=== PATIENT | male | born 1970 ===

== ENCOUNTER 2018-03-09 09:37 | Emergency (ER) | payer MEDICAID, OTHER ==
[2018-03-09 10:10] VITALS: RESP 18; TEMP 97.6
--- NOTE | 2018-03-09 11:10 | ED PDOC ---
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 Patient's portrait studio photographer reports patient felt dizzy on his way to the Emergency department but does not currently feel that way. Electric Crane Operator notes patient has never experienced these symptoms before. Patient has no known drug allergies and denies any other complaints. Patient is a non-smoker and denies EtOH consumption. Time/Duration: > week (pt notes feeling dizzy for past 4 days straight) Symptom Onset: Sudden Symptom Course: Unchanged Activities at Onset: Light Past Medical History - Provider Review Nursing Documentation Reviewed: Yes - Infectious Disease Hx of Infectious Diseases: None - Cardiac Hx Cardiac Disorders: No - Neurological Hx Vertigo: Yes - Renal Hx Renal Disorder: No - Endocrine/Metabolic Hx Endocrine Disorders: No - Hematological/Oncological Hx Blood Disorders: No - Musculoskeletal/Rheumatological Hx Musculoskeletal Disorders: No - Psychiatric Hx Substance Use: No - Anesthesia Hx Anesthesia: No Family/Social History - Physician Review Nursing Documentation Reviewed: Yes Family/Social History: No Known Family HX Smoking Status: Unknown If Ever Smoked Hx Alcohol Use: No Hx Substance Use: No Allergies/Home Meds Allergies/Adverse Reactions: Allergies No Known Allergies Allergy (Verified 03/09/18 10:10) Home Medications: Home Meds Medication Instructions Recorded Confirmed No Known Home Med 03/09/18 03/09/18 Review of Systems - Physician Review All systems were reviewed & negative as marked: Yes (All other systems negative except that noted in the HPI.) Physical Exam - Physical Exam Narrative Physical Exam (Text): 03/09/18 10:25 Gen: VS reviewed, alert, well developed, well nourished, nontoxic, mild distress. ENT: normal pharynx Eye: EOMI, PERRL Neck: no JVD, supple, no adenopathy CV: regular rate, regular rhythm, no rubs, no murmer, no gallops, S1, S2, pulses equal and strong Pulm: no distress, clear to auscultation, no wheeze, no rhonci, breath sounds equal, no rales Abd: soft, nontender, no guarding, no rebound, no rigidity, normal bowel sounds Ext: no edema Skin: good color, no rash, no cyanosis Psych: responds appropriately to questions, normal affect Neuro: oriented x3, CN2-12 intact grossly, motor intact, sensation intact Vital Signs Reviewed: Yes Vital Signs Temp Pulse Resp BP Pulse Ox 03/09/18 10:09 97.6 F 85 18 142/97 H 97 Temperature: Afebrile Blood Pressure: Hypertensive (at 142/97) Pulse: Regular Respiratory Rate: Normal Appearance: Positive for: Well-Appearing, Non-Toxic, Comfortable Pain Distress: None Mental Status: Positive for: Alert and Oriented X 3 Medical Decision Making ED Course and Treatment: 03/09/18 10:25 Impression: Differential Diagnosis included but are not limited to: Plan: -- EKG -- CMP --Troponin I -- CBC (with differential) -- X-Ray of chest, 2 views -- Orthostatic Vital signs -- Reassess and disposition Progress Notes: 03/09/18 12:56 patient was seen for nonspecific dizziness without any acute associated symptoms such headache, neuro deficits, chest pain/discomfort, abdominal pain. Patient remained stable throughout ED course and discharged in stable condition. All discussion with the patient through park interpreter with patient's permission. Patient appeared to have good understanding of care expectations and follow up expectations. Patient discharged in stable condition. - RAD Interpretation Radiology Orders: 03/09/18 10:32 CXR [CHEST TWO VIEWS (PA/LAT)] [RAD] Stat - EKG Interpretation EKG Interpretation (Text): 03/09/18 11:36 1007: nsr at 84 bpm, nml qrs, nml axis, no acute sttw abn Interpreted by ED Physician: Yes - Scribe Statement The provider has reviewed the documentation as recorded by the Scribe Aye Lockwood All medical record entries made by the Scribe were at my direction and personally dictated by me. I have reviewed the chart and agree that the record accurately reflects my personal performance of the history, physical exam, medical decision making, and the department course for this patient. I have also personally directed, reviewed, and agree with the discharge instructions and disposition. Disposition/Present on Arrival - Present on Arrival Any Indicators Present on Arrival: No History of DVT/PE: No History of Uncontrolled Diabetes: No Urinary Catheter: No History of Decub. Ulcer: No History Surgical Site Infection Following: None - Disposition Have Diagnosis and Disposition been Completed?: Yes Diagnosis: Dizziness Disposition: HOME/ ROUTINE Disposition Time: 12:58 Patient Plan: Discharge Condition: STABLE Discharge Instructions (ExitCare): Dizziness, Nonvertigo, (DC) Print Language: SOUTH AFRICAN Referrals: [facility] [Outside] - Follow up with primary Anusha Schmid MD [Medical Doctor] - Follow up with primary Forms: [facility] (Faroese)
[2018-03-09 11:18] LABS: ALB/GLOB RATIO 1.3 (1.1-1.8); ALBUMIN 4.3 g/dL (3.0-4.8); ALT/SGPT 32 U/L (7-56); AST/SGOT 27 U/L (17-59); BLOOD UREA NITROGEN 12 mg/dL (7-21); CALCIUM 8.8 mg/dL (8.4-10.5); GFR NON-AFRICAN AMERICAN > 60
[2018-03-09 11:26] LABS: BASO # 0.01 K/mm3 (0.0-2.0); BASO % 0.2 % (0.0-3.0); EOS # 0.1 (0.0-0.7); EOS % 1.6 % (1.5-5.0); GRAN # 4.15 (1.4-6.5); GRAN % 67.4 % (50.0-68.0); HEMOGLOBIN 14.4 g/dL (14.0-18.0); LYMPH # 1.2 (1.2-3.4); LYMPH % 19.3 % (22.0-35.0); MEAN CELL VOLUME 93.4 fl (80.0-105.0); MEAN CORPUSCULAR HEMOGLOBIN 31.9 pg (25.0-35.0); MEAN CORPUSCULAR HGB CONC 34.1 g/dl (31.0-37.0); MEAN PLATELET VOLUME 10.1 fl (7.0-11.0); MONO # 0.7 (0.1-0.6); MONO % 11.5 % (1.0-6.0); RBC 4.52 10^6/uL (3.5-6.1); WHITE BLOOD COUNT 6.2 10^3/ul (4.5-11.0)
[2018-03-09 11:30] LABS: TROPONIN I < 0.01 ng/mL
[2018-03-09 11:39] VITALS: O2SAT 98
--- NOTE | 2018-03-09 12:43 | RAD ---
Date of service: 03/09/2018 HISTORY: dyspnea COMPARISON: No prior. TECHNIQUE: Chest PA and lateral FINDINGS: LUNGS: No active pulmonary disease. PLEURA: No significant pleural effusion identified. No pneumothorax apparent. CARDIOVASCULAR: Normal. OSSEOUS STRUCTURES: No significant abnormalities. VISUALIZED UPPER ABDOMEN: Normal. OTHER FINDINGS: None. IMPRESSION: No active disease.
[2018-03-09 12:47] VITALS: BP 135/78; PULSE 75
--- NOTE | 2018-03-09 15:00 | CARD ---
APPROVED REPORT Date of service: 03/09/2018 EKG Measurement Heart [id number] <Conclusion> Normal sinus rhythm Normal ECG
== END 2018-03-09 13:33 | disposition home or self-care (01) ==
LOC: MERGE 09:37 → ED 09:37
DX: R42 Dizziness and giddiness (principal)